=== PATIENT | male | born 1980 | race Caucasian/White ===

== ENCOUNTER 2018-02-08 20:51 | Emergency (ER) | payer MEDICAID, SELFPAY ==
[2018-02-08 20:51] VITALS: BP 139/75; PULSE 86; RESP 16; TEMP 37; O2SAT 97; BMI 26.9
--- NOTE | 2018-02-08 21:05 | ED.VISSUMM ---
- ER Visit Summary Date of Service: 02/08/18 Chief Complaint: Dog bite History of Present Illness: The patient is a 37 M [id number] dog bite right middle and index finger. 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 Tetanus February 2017. No paresthesias or loss of function. Denies any significant pain. Unable to control bleeding. Physical Examination: General: Alert and oriented ?3, no acute distress HEENT: Normocephalic, atraumatic. Moist mucosa membranes Neck: supple, nontender. Cardiovascular: Regular rate and rhythm, no murmurs Respiratory: Normal breath sounds, symmetric, no distress Abdomen: Soft, nontender, nondistended Extremities: Nontender, no edema, pulses intact ?4. Right hand: Middle finger, abrasion across the dorsal aspect middle phalanx no active bleeding. Middle finger noted 2 cm laceration across the ulnar aspect proximal middle phalanx, flexion and extension intact against resistance. Minimal bleeding. Sensation intact distally. Neuro: no focal neurological deficits. Test Results: [] Emergency Department Course and Treatment: Due to dog bite with laceration, is soaked in Betadine water mixture prolonged period of time. Evaluation during laceration repair, subcutaneous involvement. However due to mild bleeding, 3 loose sutures were placed. Wound care discussed. He was started on Augmentin. Signs and symptoms for infection discussed to return otherwise follow-up with his PCP for suture removal. All questions were answered. Treatment Plan: [] Disposition: Discharge Impression: 1. Right middle finger laceration 2. Dog bite right index and middle finger This note was generated with Domee dictation software. It may contain incorrect words, spelling, and punctuation that were not noted in review of the chart prior to signing ED Disposition - Plan for ED Patient: Disposition: Home or Assisted Living Chief Complaint: Bite Diagnosis: Laceration of right middle finger, Dog bite of multiple sites of right hand and fingers Instructions: ED Bite Dog, ED Laceration All Prescriptions: Amox/Clavulanate Tablet [Augmentin Tablet] 875 mg PO Q12H #14 tablet Referrals: Care Physician,No Primary [Primary Care Provider] - Domenico Almaraz MD [STAFF PHYSICIAN] - 10-14 Days suture removal
[2018-02-08] MEDS: Amox/Clavulanate 875 MG Tablet PO (21:18)
[2018-02-08 22:28] VITALS: PULSE 67; RESP 20
[2018-02-08] MEDS: BACITRACIN 15 GM Tube 1 APPLIC TOPICAL (22:30)
== END 2018-02-08 22:30 | disposition home or self-care (01) ==
PROVIDERS: Emergency Provider Emergency Medicine
DX: S61.212A Laceration without foreign body of right middle finger without damage to nail, initial encounter (principal); S60.470A Other superficial bite of right index finger, initial encounter; W54.0XXA Bitten by dog, initial encounter; Y93.89 Activity, other specified; Y92.009 Unspecified place in unspecified non-institutional (private) residence as the place of occurrence of the external cause; Z72.0 Tobacco use
CPT/HCPCS: 12001; 99283

== ENCOUNTER → 2018-02-12 09:21 | Outpatient (CLI) | payer MEDICAID, SELFPAY ==
[2018-02-12 10:16] LABS: Absolute Lymphocyte Count 1.73 X10^3/ul (0.83-4.51); Absolute Neutrophil Count 4.1 X10^3/uL (2.0-7.7); Basophil# 0.02 X10^3/uL; Basophil% 0.3 % (0-1); Eosinophil# 0.14 X10^3/uL; Eosinophils% 2.2 % (0-5); Hematocrit 39.4 % (40-54); Hemoglobin 13.2 g/dl (13.0-16.5); Lymphocyte # 1.73 X10^3/ul (4.0); Lymphocyte % 26.7 % (19-41); Mean Corp Hgb Conc 33.5 g/gl (32-36); Mean Corpuscular Hgb 31.3 pg (27.0-32.0); Mean Corpuscular Volume 93.4 fL (80-94); Mean Platelet Vol. 10.1 fl (6.2-12.0); Monocyte# 0.52 X10^3/uL; Neutrophil # 4.07 X10^3/uL (2.7-7.7); Neutrophil % 62.8 % (47-70); POSITIVE COUNT NO; POSITIVE DIFFERENTIAL NO; POSITIVE MORPHOLOGY NO; Platelet Count 211 K/mm3 (150-450); RBC Distribution Width CV 13.5 % (11.6-14.6); RBC Distribution Width SD 46.1 fl (35.1-43.9); Red Blood Count 4.22 M/mm3 (4.6-6.2); White Blood Count 6.5 K/mm3 (4.4-11.0)
[2018-02-12 10:42] LABS: Anion Gap 10 (5-15); BUN 18 mg/dL (7-18); BUN/Creat Ratio 17.5 RATIO (10-20); Chloride 106 mmol/L (98-107); Cholesterol 154 mg/dL (200); Creatinine, Serum 1.03 mg/dL (0.70-1.30); EST Glomerular Filtration Rate 85 mL/min (>60); Est Glom Filt Rate - Afr Amer 103 mL/min (>60); Glucose 89 mg/dL (74-106); High Density Lipoprotein 76 mg/dL; Potassium 3.9 mmol/L (3.5-5.1); Sodium Level 141 mmol/L (136-145); Triglycerides 40 mg/dL; Very Low Density Lipoprotein 8 mg/dL (5-40)
[2018-02-12 12:38] LABS: HIV - WCH Non-Reactive (Nonreactive)
[2018-02-14 09:49] LABS: HEPATITIS B SURFACE AG Negative (Negative); Hep C Antibodies <0.1 s/co ratio (0.0-0.9)
== END ==
PROVIDERS: Family Provider Family Medicine; PCP Family Medicine; Visit Provider Family Medicine
DX: I10 Essential (primary) hypertension (principal); Z87.898 Personal history of other specified conditions
CPT/HCPCS: 36415; 80048; 80061; 85025; 86703; 86803; 87340

== ENCOUNTER 2018-05-06 06:51 | Emergency (ER) | payer MEDICAID, SELFPAY ==
[2018-05-06 06:52] VITALS: BP 176/114; PULSE 107; RESP 16; TEMP 36.7; O2SAT 97; BMI 25.1
--- NOTE | 2018-05-06 06:55 | NURSING ---
NO OLD EKGS
--- NOTE | 2018-05-06 07:08 | ED.RN ---
Attempted to obtain EKG of patient. Patient will not sit still long enough to obtain ekg. Patient jumped up and growled at nursing staff and stated I feel better I am leaving. Patient ripped off all Monitors and left the unit at this time. Patient keeps walking in and out of the ER looking for family. Dr. Eagle attempted to examine patient. Patient unwilling to let Dr. Eagle examine the patient. Patient again walking around the unit refusing to allow medical treatment. Pt advised he needs to remain in the unit or leave. Patient at this time states he is fine and walked out. Patient wondering around the triage unit. rambling thoughts and unwilling to listen to staff. Patient family arrived and picked patient up and they left
--- NOTE | 2018-05-06 07:09 | EKG12_ITS ---
Test Reason : CP Blood Pressure : / mmHG Vent. Rate : 105 BPM Atrial Rate : 105 BPM P-R Int : 140 ms QRS Dur : 102 ms QT Int : 332 ms P-R-T Axes : 000 190 131 degrees QTc Int : 438 ms Sinus tachycardia Right superior axis deviation Nonspecific ST and T wave abnormality Abnormal ECG Confirmed by AYLA BRAN, PERLA ([id number]), supervising editor trailer ADELE RO ([id number]) on 05/07/2018 11:22:50 AM Referred By: SULMA Confirmed By:PERLA AGUILA MD
--- NOTE | 2018-05-06 07:10 | ED.VISSUMM ---
- ER Visit Summary Date of Service: 05/06/18 Chief Complaint: Chest pain History of Present Illness: The patient is a 37 M patient presents reported by his neighbor with chief complaint noted chest pain. Per nurse report states while doing light physical activity. During my evaluation patient denies any symptoms. Denies any current chest pain. He states he is brought by his neighbor. He admits to history of THC use with last use today. During evaluation, patient states he just needs to go. He denies any suicidal or homicidal ideations. He reports I took care of the last time he was here. Records notes history of tobacco occasional alcohol. Denies nausea vomiting or diarrhea. Denies any recent illness. Records reviewed: Evaluated 3 months ago for dog bite of his extremities. Family later present, states history of substance abuse. States that he is multiple drugs in the past he is on Suboxone. Patient denies any alcohol the last 2 days. Family states heavy drinker. Physical Examination: Initial evaluation, patient unable to sit still the room. Denies suicidal homicidal ideations. Declines any further exam at this time. Secondary physical examination on return with family: General: Alert and oriented ?3, no acute distress HEENT: Normocephalic, atraumatic. Moist mucosa membranes Neck: supple, nontender. Cardiovascular: Regular rate 96 and rhythm, no murmurs Respiratory: Normal breath sounds, symmetric, no distress Abdomen: Soft, nontender, nondistended Extremities: Nontender, no edema, pulses intact ?4 Neuro: no focal neurological deficits. Test Results: EKG: Sinus rhythm [address] changes or T wave inversions in 1 and aVL. Troponin less than 0.015. CBC, BMP normal. Tox screen positive for THC. Emergency Department Course and Treatment: Patient denying any symptoms in the emergency department. Denies suicidal homicidal ideations. Patient initially left the department, return with family and willing to be evaluated. Heart rate evaluation was in normal range during the physical exam. With his initial complaint of chest pain cardiac workup sent normal. Tox screen returned THC. Multiple discussion with family, history of multiple polysubstance abuse. Discuss with synthetic productions, tox screen does not screen for all drugs. Patient up walking, protecting his airway. He has no suicidal intentions. Family feels comfortable taking him home and monitoring. Discussed with them time should help with situation. If he redevelops chest symptoms to bring him back. They understand and agree with plan. Treatment Plan: [] Disposition: Discharge Impression: 1. Atypical chest pain 2. THC use This note was generated with [employer]wheel dictation software. It may contain incorrect words, spelling, and punctuation that were not noted in review of the chart prior to signing ED Disposition - Plan for ED Patient: Disposition: Home or Assisted Living Chief Complaint: Chest Pain Diagnosis: Atypical chest pain, Tetrahydrocannabinol (THC) use disorder, moderate, dependence Instructions: ED Chest Pain UKO Ch, Cannabinoid Screen and Confirmation Urine Referrals: Domenico Almaraz MD [Primary Care Provider] - 3-5 Days
--- NOTE | 2018-05-06 07:14 | ED.DCSUM_ITS ---
- ER Visit Summary Date of Service: 05/06/18 Chief Complaint: Chest pain History of Present Illness: The patient is a 37 M patient presents reported by his neighbor with chief complaint noted chest pain. Per nurse report states while doing light physical activity. During my evaluation patient denies any s ymptoms. Denies any current chest pain. He states he is brought by his neighbor. He admits to history of THC use with last use today. During evaluation, patient states he just needs to go. He denies any suicidal or homicidal ideations. He reports I took care of the last time he was here. Records notes history of tobacco occasional alcohol. Denies nausea vomiting or diarrhea. Denies any recent illness. Records reviewed: Evaluated 3 months ago for dog bite of his extremities. Family later present, states history of substance abuse. States that he is multiple drugs in the past he is on Suboxone. Patient denies any alcohol the last 2 days. Family states heavy drinker. Physical Examination: Initial evaluation, patient unable to sit still the room. Denies suicidal homicidal ideations. Declines any further exam at this time. Secondary physical examination on return with family: General: Alert and oriented ?3, no acute distress HEENT: Normocephalic, atraumatic. Moist mucosa membranes Neck: supple, nontender. Cardiovascular: Regular rate 96 and rhythm, no murmurs Respiratory: Normal breath sounds, symmetric, no distress Abdomen: Soft, nontender, nondistended Extremities: Nontender, no edema, pulses intact ?4 Neuro: no focal neurological deficits. Test Results: EKG: Sinus rhythm [address] changes or T wave inversions in 1 and aVL. Troponin less than 0.015. CBC, BMP normal. Tox screen positive for THC. Emergency Department Course and Treatment: Patient denying any symptoms in the emergency department. Denies suicidal homicidal ideations. Patient initially left the department, return with family and willing to be evaluated. Heart rate evaluation was in normal range during the physical exam. With his initial complaint of chest pain cardiac workup sent normal. Tox screen returned THC. Multiple discussion with family, history of multiple polysubstance abuse. Discu ss with synthetic productions, tox screen does not screen for all drugs. Patient up walking, protecting his airway. He has no suicidal intentions. Family feels comfortable taking him home and monitoring. Discussed with them time should help with situation. If he redevelops chest symptoms to bring him back. They understand and agree with plan. Treatment Plan: [] Disposition: Discharge Impression: 1. Atypical chest pain 2. THC use This note was generated with [employer] dictation software. It may contain incorrect words, spelling, and punctuation that were not noted in review of the chart prior to signing ED Disposition - Plan for ED Patient: Disposition: Home or Assisted Living Chief Complaint: Chest Pain Diagnosis: Atypical chest pain, Tetrahydrocannabinol (THC) use disorder, moderate, dependence Instructions: ED Chest Pain UKO Ch, Cannabinoid Screen and Confirmation Urine Referrals: Domenico Almaraz MD [Primary Care Provider] - 3-5 Days
--- NOTE | 2018-05-06 07:26 | ED.RN ---
Pt never left hospital grounds. Returned to ED agreeing to be evaluated.
--- NOTE | 2018-05-06 07:47 | ED.RN ---
PT CONTINUES TO PACE OUT OF THE ROOM AND WANT TO LEAVE. PT FAMILY GETS HIM TO RETURN TO ROOM. URINE AND BLOODWORK SENT TO LAB.
[2018-05-06 07:54] LABS: Absolute Lymphocyte Count 1.88 X10^3/ul (0.83-4.51); Basophil# 0.02 X10^3/uL; Basophil% 0.2 % (0-1); Eosinophil# 0.19 X10^3/uL; Eosinophils% 2.1 % (0-5); Hematocrit 40.6 % (40-54); Hemoglobin 13.5 g/dl (13.0-16.5); Lymphocyte # 1.88 X10^3/ul (4.0); Lymphocyte % 21.2 % (19-41); Mean Corp Hgb Conc 33.3 g/gl (32-36); Mean Corpuscular Volume 93.3 fL (80-94); Mean Platelet Vol. 10.3 fl (6.2-12.0); Monocyte# 0.82 X10^3/uL; Monocyte% 9.2 % (0-10); Neutrophil # 5.95 X10^3/uL (2.7-7.7); Neutrophil % 67.2 % (47-70); Platelet Count 167 K/mm3 (150-450); RBC Distribution Width CV 13.1 % (11.6-14.6); RBC Distribution Width SD 44.6 fl (35.1-43.9); Red Blood Count 4.35 M/mm3 (4.6-6.2); White Blood Count 8.9 K/mm3 (4.4-11.0)
[2018-05-06 07:58] LABS: POSITIVE COUNT NO; POSITIVE DIFFERENTIAL NO; POSITIVE MORPHOLOGY NO
--- NOTE | 2018-05-06 07:59 | ED.RN ---
PT CONTINUES TO PACE BACK AND FORTH IN THE ED [facility] FROM ROOM 4 DOWN TO THE DOORS BY SECURITY. PT HAS JEANS AND SHOES ON BUT IS CARRYING HIS SHIRT IN HIS HAND. PT STATES THAT HE IS UNABLE TO SIT STILL THAT HE HAS THINGS TO DO.
[2018-05-06 08:07] LABS: Amphetamine Urine VISTA NEGATIVE (<1000 ng/mL); Barbiturate Urine VISTA NEGATIVE (< 200 ng/mL); Benzodiazepine Urine VISTA NEGATIVE (< 200 ng/mL); Cocaine Urine VISTA NEGATIVE (< 300 ng/mL); Ecstacy Urine VISTA NEGATIVE (< 500 ng/mL); Methadone Urine VISTA NEGATIVE (< 300 ng/mL); PCP Urine VISTA NEGATIVE (< 25 ng/mL); THC Urine VISTA POSITIVE (< 50 ng/mL); Vista UDS pH Range 6
[2018-05-06 08:07] LABS: Anion Gap 11 (5-15); BUN 21 mg/dL (7-18); BUN/Creat Ratio 19.3 RATIO (10-20); Calcium,Total 8.6 mg/dL (8.5-10.1); Chloride 106 mmol/L (98-107); Creatinine, Serum 1.09 mg/dL (0.70-1.30); EST Glomerular Filtration Rate 80 mL/min (>60); Est Glom Filt Rate - Afr Amer 97 mL/min (>60); Estimated Creatinine Clearance 108.75 ml/min; Glucose 108 mg/dL (74-106); Potassium 3.7 mmol/L (3.5-5.1); Sodium Level 140 mmol/L (136-145)
[2018-05-06 08:27] VITALS: BP 147/97; PULSE 81; RESP 16; O2SAT 96
== END 2018-05-06 08:28 | disposition home or self-care (01) ==
PROVIDERS: Emergency Provider Emergency Medicine; Family Provider Family Medicine; PCP Family Medicine
DX: R07.89 Other chest pain (principal); F12.90 Cannabis use, unspecified, uncomplicated
CPT/HCPCS: 36415; 80048; 80307; 84484; 85025; 93005; 99283

== ENCOUNTER 2018-10-08 13:04 | Emergency (ER) | payer MEDICAID, SELFPAY ==
[2018-10-08 13:07] VITALS: BP 112/85; PULSE 102; RESP 16; TEMP 36.6; O2SAT 97; BMI 25.3
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
--- NOTE | 2018-10-08 15:24 | ED.DEP ---
ED Disposition - Plan for ED Patient: Instructions: ED Contusion Chest Wall Prescriptions: Cyclobenzaprine [Flexeril] 10 mg PO TID PRN #20 tab PRN Reason: Muscle Spasm Referrals: Domenico Almaraz MD [Primary Care Provider] -
== END 2018-10-08 15:48 | disposition home or self-care (01) ==
PROVIDERS: Emergency Provider Emergency Medicine; Family Provider Family Medicine; PCP Family Medicine
DX: R07.89 Other chest pain (principal)
CPT/HCPCS: 71101; 99282

== ENCOUNTER 2019-04-21 13:46 | Emergency (ER) | payer MEDICAID, SELFPAY ==
[2019-01-10 11:26] VITALS: BMI 23.1
[2019-04-21 13:47] VITALS: BP 133/78; PULSE 83; RESP 16; TEMP 36.6; O2SAT 99; BMI 26.9
[2019-04-21] MEDS: HYDROcodone Bitartrate/Apap 5/325 Tablet PO (14:45)
--- NOTE | 2019-04-21 14:50 | ED.VIS.GEN ---
History of Present Illness Chief Complaint: Abscess Informant: Patient Onset: Days - 3 Narrative: Patient presents with left face swelling and infection. This is been ongoing for a few days was seen at an urgent care yesterday and given amoxicillin. No fever chills cough or congestion no difficulty swallowing no dental pain. Past Medical History - Allergies and Home Meds Allergies/Adverse Reactions: Allergies No Known Allergies Allergy (Verified 04/21/19 13:47) Primary Care Physician: Care Physician,No Primary [Primary Care Provider] - Past Medical History: - - History of opiate dependence Smoking Status: Current every day smoker Review of Systems General: Denies: Fever ENT: Reports: - - Facial pain is in HPI Cardiovascular: Denies: Chest pain Respiratory: Denies: Dyspnea, Cough Skin: Reports: Abscess Neurological: Denies: Weakness Physical Exam Vital Signs/Narrative: Vital Signs Temp Pulse Resp BP Pulse Ox 04/21/19 13:47 98 F 83 16 133/78 H 99 General: Well nourished ENT: - - Left sided facial pain, there is a 6 cm abscess and another small abscess near the earlobe. There is slight surrounding cellulitis Cardiovascular: Regular rate, Regular rhythm Respiratory: No distress Abdomen: Soft Back: Nontender Extremities: Nontender Skin: No rash Diagnostic/Tx/Re-eval - Medical Decision Making Patient will be switched from amoxicillin to clindamycin, his abscess was drained I will discharge him in stable condition he is on Suboxone at home. Procedures Procedure(s): Incision and drainage: 1% lidocaine, James, #11 blade. Lots of pus was expectorated loculations were broken up. Patient tolerated procedure relatively well ED Disposition - Plan for ED Patient: Disposition: Psychiatric Hospital or Unit Diagnosis: Patient in stable condition at discharge, Abscess Instructions: ABSCESS, Incision and Drainage Referrals: Care Physician,No Primary [Primary Care Provider] - 2 Days
[2019-04-21 15:19] VITALS: BP 147/72; PULSE 78; RESP 18
--- NOTE | 2019-04-21 15:24 | ED.DEP ---
ED Disposition - Plan for ED Patient: Disposition: Psychiatric Hospital or Unit Diagnosis: Patient in stable condition at discharge, Abscess Instructions: ABSCESS, Incision and Drainage Prescriptions: Clindamycin [Cleocin] 300 mg PO TID #60 cap Prescription Printed Referrals: Care Physician,No Primary [Primary Care Provider] - 2 Days
== END 2019-04-21 15:29 | disposition home or self-care (01) ==
PROVIDERS: Emergency Provider Emergency Medicine
DX: L02.01 Cutaneous abscess of face (principal); F17.200 Nicotine dependence, unspecified, uncomplicated; F11.21 Opioid dependence, in remission
CPT/HCPCS: 10060; 99283

== ENCOUNTER → 2019-05-28 11:00 | Outpatient (CLI) | payer OTHER, SELFPAY ==
[2019-05-28 10:44] VITALS: BMI 25.5
--- NOTE | 2019-05-28 11:00 | RAD_ITS ---
STUDY: X-RAY - LEFT HAND REASON FOR EXAM: Pain and numbness of the first through fifth distal phalanges, open wound of the first distal digit, possible frostbite of the thumb. TECHNIQUE: 3 view(s) of the hand. COMPARISON: None. FINDINGS: Normal radiocarpal articulation. Normal distal radioulnar joint. Normal visualized carpal bones. Normal carpal articulations Normal carpometacarpal articulation of the thumb. Normal second through fifth carpometacarpal joints. Normal metacarpi. Normal metacarpophalangeal joint of the thumb. Normal interphalangeal joint of the thumb. Normal proximal and distal phalanges of the thumb. Normal metacarpophalangeal joints of the second through fifth fingers. Normal proximal and distal interphalangeal joints of the second through fifth fingers. There is a very small cyst in the third middle phalangeal base. Otherwise, unremarkable phalanges of the second through fifth fingers. There is soft tissue swelling of the distal thumb. RAD/Hand Min 3 Views IMPRESSION: Soft tissue swelling of the distal thumb. Very small cyst in the third middle phalangeal base. Otherwise, unremarkable x-ray examination of the left hand. Electronically Signed: Alin Brown MD at 11:53 EST Tel , Service support ,
== END ==
PROVIDERS: Referring Provider Physician Assistant; Visit Provider Physician Assistant
DX: T33.522A Superficial frostbite of left hand, initial encounter (principal); X31.XXXA Exposure to excessive natural cold, initial encounter; L03.012 Cellulitis of left finger
CPT/HCPCS: 73130; 87070; 87186; 87205

== ENCOUNTER 2019-06-01 16:13 | Emergency (ER) | payer OTHER, MEDICAID, SELFPAY ==
[2019-06-01 12:27] VITALS: BMI 26.9
[2019-06-01 16:14] VITALS: BP 130/76; PULSE 96; RESP 16; TEMP 36.9; O2SAT 96; BMI 25.7
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
== END 2019-06-01 17:11 | disposition home or self-care (01) ==
PROVIDERS: Emergency Provider Emergency Medicine
DX: S60.322A Blister (nonthermal) of left thumb, initial encounter (principal); B95.62 Methicillin resistant Staphylococcus aureus infection as the cause of diseases classified elsewhere; W93.2XXA Prolonged exposure in deep freeze unit or refrigerator, initial encounter; Y93.89 Activity, other specified; Y92.9 Unspecified place or not applicable; Y99.0 Civilian activity done for income or pay; Z86.14 Personal history of Methicillin resistant Staphylococcus aureus infection; F17.200 Nicotine dependence, unspecified, uncomplicated
CPT/HCPCS: 99283

== ENCOUNTER 2019-06-12 10:05 | Outpatient (RCR) | payer OTHER, SELFPAY ==
[2019-06-12 10:12] VITALS: BP 123/80; PULSE 86; RESP 18; TEMP 36.9; BMI 25.7
--- NOTE | 2019-06-12 11:00 | PCM.WC.HP ---
(1) Frostbite of finger of left hand Status: Acute Current Visit: Yes Code(s): T33.522A - Superficial frostbite of left hand, initial encounter (2) Cellulitis of left thumb Status: Acute Current Visit: Yes Code(s): L03.012 - Cellulitis of left finger (3) Frostbite of finger of right hand Status: Acute Current Visit: Yes Code(s): T33.521A - Superficial frostbite of right hand, initial encounter History of Present Illness Date of Service: 06/12/19 Chief Complaint: frostbite of left thumb, left thumb swelling and pain History of Wound: [facility] evaluation of his left thumb status post work-related injury. He was referred from the [facility] urgent care. He was initially seen at the [facility] on 05/28/2019 for this work-related injury. Per patient and chart notes, he developed frostbite in all digits of bilateral hands while at work about 1 week prior to being seen at the [facility] (~05/21/2019). 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 Upon initial development of frostbite, patient was experiencing swelling, pain, and hypopigmentation of all digits. However on 05/26/2019 he began experiencing increasing pain, swelling, and redness, as well as purulent discharge from his left thumb. His left hand x-ray done on 05/28/2019 showed soft tissue swelling of the left distal thumb, but otherwise unremarkable in regards to frostbite and cellulitis. The culture that was collected at the [facility] on 05/28/2019 was positive for MRSA. Patient was treated with 2 weeks of doxycycline. When he was subsequently seen at the urgent care on 06/01/2019, he did not feel his thumb was improving and he was overall feeling poorly. He had used pliers to squeeze his thumb in an attempt to express more drainage from thumb. At that time he was sent to the emergency room, where he was evaluated and discharged home without any changes to plan of care. At today's visit 06/12/2019, he denies any new or worsening symptoms. He reports that the pain in his left thumb is persistent. He reports that the swelling and pallor in his thumb is mildly improved. He does report some upset stomach, which he relates to his antibiotics. He reports that the purulent drainage from his thumb has resolved since finishing the antibiotics. The patient otherwise denies any fever, chills, nausea, vomiting, or diarrhea. Denies any signs of infection, including increasing pain, redness, swelling, or drainage from affected area. He has limited range of motion of his left thumb due to the swelling and pain. Given his work duties, which include lifting and working in -20 ?F temperatures, he reports he has been unable to return to work. Past Medical History Allergies/Adverse Reactions: Allergies No Known Allergies Allergy (Verified 06/01/19 16:14) Home Medications: Ambulatory Orders Medication Instructions Recorded Buprenorphine HCl/Naloxone HCl 0.5 ea SL QHS 04/21/19 [Buprenorphn-Naloxn 2-0.5 mg Sl] Buprenorphine HCl/Naloxone HCl 1 ea SL DAILY 04/21/19 [Buprenorphn-Naloxn 2-0.5 mg Sl] Smoking Status: Current every day smoker Review of Systems Constitutional: Denies: Chills, Fever, Weight Change Cardiovascular: Denies: Chest Pain, Palpitations Respiratory: Denies: Cough, Shortness of Breath, Wheezing Gastrointestinal: Denies: Diarrhea, Nausea, Vomiting Musculoskeletal: Reports: Hand Pain - B/L digits distally; L thumb, Joint Pain - Left thumb, Joint stiffness - Left thumb IP joint Skin: Reports: Skin Changes - Decrease in erythema and swelling of left thumb, resolution of pallor in all distal phalanges.. Denies: Rash Neurological: Reports: Numbness - Decreased sensation in all fingertips of bilateral hands.. Denies: Tingling - Physical Exam Vital Signs Temp Pulse Resp BP 98.5 F 86 18 123/80 H 06/12/19 10:12 06/12/19 10:12 06/12/19 10:12 06/12/19 10:12 General: Alert, Oriented x3, Cooperative, No apparent distress HEENT: Atraumatic, EOMI, Normocephalic Oral: Moist Mucosa Neck: Supple, No JVD, Trachea Midline Lungs: Clear to auscultation, Normal air movement, No rhonchi, No wheeze, No rales Cardiovascular: Regular rate, Regular Rhythm Abdomen: Bowel Sounds Present, Soft, Non Tender Extremities: No clubbing, No cyanosis, Capillary Refill Less than 3 Seconds, Edema - Swelling of left thumb in its entirety, from base to fingertip., Peripheral Pulses Normal Skin: No rashes, Ulcer/ Wound - Mild erythema of distal left thumb, scant amount of clear, nonpurulent drainage expressed from thumb, the wound opening is not directly visible. Fluctuance palpable beneath left thumb volar pad. Mild ecchymosis of left thumb distally. Swelling of left thumb in entirety from base to tip. Severe tenderness of L thumb on palpation and manipulation. Wound Measurements and Assessment - Nurse 1 - General Ulcer Measurement Start: 06/12/19 10:12 Freq: Status: Active Protocol: Activity Type Activity Date Activity User E-Sign Co-Sign Detail Recorded Client Recorded Date Recorded By Document 06/12/19 10:12 [id number] [id number] 06/12/19 10:19 06/12/19 10:12 Wound Center Nurse 1 [Edema Assessment] -Lower Limb Edema Present NA - Nurse 2 - General Ulcer CM Notes Start: 06/12/19 10:12 Freq: Status: Active Protocol: Activity Type Activity Date Activity User E-Sign Co-Sign Detail Recorded Client Recorded Date Recorded By Document 06/12/19 10:36 [id number] [id number] 06/12/19 10:48 06/12/19 10:36 Wound Center Nurse 2 [Procedure/Treatment] 1-left thumb -Time 10:37 -Correct Patient Yes -Correct Side, Site, Position Yes -Correct Procedure Yes -Procedure Performed Yes -Type of Procedure Debridement -Clinical Debridement Selective -Post Debridement Size (cm) - Length 0.1 -Post Debridement Size (cm) - Width 0.1 -Post Debridement Size (cm) - Depth 0.1 -Total Square Cm 0.01 -Wound/Ulcer Outcome Not Healed -Ulcer Cleansing Rinsed/ Irrigated with Saline -Foul Odor after Cleansing No -Bioengineered Tissue No -Bleeding Controlled with Pressure -Offloading No -Treatment Response Procedure Tolerated Well [See Physician Procedure note for Specifics] Pain Scale: 0-10 Numeric [Pain] -Is Patient Pain Free? No Musculoskeletal: Tenderness - Severe tenderness of left thumb on palpation of manipulation. Neurological: Neuro grossly intact - Per patient, sensation to light touch is impaired in all 10 fingertips. Psych/Mental Status: Anxious Debridement Note Post-Debridement Measurements/Treatment - Nurse 2 - General Ulcer CM Notes Start: 06/12/19 10:12 Freq: Status: Active Protocol: Activity Type Activity Date Activity User E-Sign Co-Sign Detail Recorded Client Recorded Date Recorded By Document 06/12/19 10:36 [email or web address] [id number] 06/12/19 10:48 FIFI 06/12/19 10:36 Wound Center Nurse 2 1-left thumb -Time 10:37 -Correct Patient Yes -Correct Side, Site, Position Yes -Correct Procedure Yes -Procedure Performed Yes -Type of Procedure Debridement -Clinical Debridement Selective -Post Debridement Size (cm) - Length 0.1 -Post Debridement Size (cm) - Width 0.1 -Post Debridement Size (cm) - Depth 0.1 -Total Square Cm 0.01 -Wound/Ulcer Outcome Not Healed -Ulcer Cleansing Rinsed/ Irrigated with Saline -Foul Odor after Cleansing No -Bioengineered Tissue No -Bleeding Controlled with Pressure -Offloading No -Treatment Response Procedure Tolerated Well Pain Scale: 0-10 Numeric Is Patient Pain Free? No Assessment/Plan Active Problems (Last Reviewed 06/01/19 @ 12:27 by Harini Wills) Cellulitis of left thumb (Acute) Frostbite of finger of right hand (Acute) Frostbite of finger of left hand (Acute) Assessment: See above dx Plan: Previous records reviewed. I&D performed to L thumb volar pad. Attempted to use 2% lidocaine injection to numb thumb. Patient did not tolerate, jerking away from needle after insertion, and asked to proceed with I&D without lidocaine d/t pain with injection. Small, approximately 1 cm incision made to left thumb volar pad using #15 blade. Small amount of clear, nonpurulent drainage expressed. Patient did not tolerate procedure well and procedure was stopped prematurely due to risk of injury to patient and provider, given patient's intolerance to pain and inability to remain still during procedure. Incision was not large/wide enough to pack with dressing. Wound was cleansed following I&D, and sterile gauze dressing placed. At home wound-care instructions: Soak wound in warm salt water several times daily. Take caution to ensure that water is not too hot, as this may cause further injury. Use Hibiclens to left thumb several times daily and as needed to keep skin clean and dry, and free from infection. Cover left thumb with sterile gauze and keep covered. Diet: Increase protein intake to promote wound healing. Labs/cultures/imaging: Left hand x-ray and thumb culture results reviewed. Repeat x-ray of left hand with attention to left thumb ordered today due to unresolved swelling and pain of left thumb. Follow-up: Return to clinic in 1 week for re-evaluation. [facility] [place] paperwork completed. Patient is to remain off work until [facility]. He is to avoid handling hot or cold items and to avoid cold environments. If at anytime symptoms worsen, or new symptoms develop, please report to the emergency department for evaluation. Note: [employer] speech recognition mechanical engineering lecturer software was used to create portions of this document. Sound-alike and misspelled words, as well as other mechanical engineering lecturer errors may be contained in the documentation. Code Visit Office Visits / Consults: [id number] OV L4 Est 10xxx: [id number] Drainage of skin abscess
== END 2019-06-16 23:59 ==
LOC: WC 10:05
PROVIDERS: Visit Provider Nurse Practitioner Family
DX: T33.522A Superficial frostbite of left hand, initial encounter (principal); T33.521A Superficial frostbite of right hand, initial encounter; L03.012 Cellulitis of left finger; Y99.0 Civilian activity done for income or pay; W93.8XXA Exposure to other excessive cold of man-made origin, initial encounter; Y93.89 Activity, other specified; Y92.89 Other specified places as the place of occurrence of the external cause; F17.200 Nicotine dependence, unspecified, uncomplicated
CPT/HCPCS: 10060; 99213; G0463

== ENCOUNTER → 2019-06-12 11:18 | Outpatient (CLI) | payer MEDICAID, SELFPAY ==
[2019-06-12 10:12] VITALS: BMI 25.7
--- NOTE | 2019-06-12 11:21 | RAD_ITS ---
STUDY: X-RAY - LEFT HAND REASON FOR EXAM: Male, 38 years old. PREVIOUS FROSTBITE. NOT GETTING BETTER TECHNIQUE: 3 view(s) of the hand. COMPARISON: None. FINDINGS: Normal radiocarpal articulation. Normal distal radioulnar joint. Normal visualized carpal bones. Normal carpal articulations Normal carpometacarpal articulation of the thumb. Normal second through fifth carpometacarpal joints. Normal metacarpi. Normal metacarpophalangeal joint of the thumb. Normal interphalangeal joint of the thumb. Normal proximal phalanx of the thumb. There is subtle lucency involving the base of the distal phalanx which may indicate sequela of a nondisplaced fracture. Abnormal lucency at the tip of the distal phalanx which may indicate a subtle crush fracture. Normal metacarpophalangeal joints of the second through fifth fingers. Normal proximal and distal interphalangeal joints of the second through fifth fingers. Normal phalanges of the second through fifth fingers. The soft tissue structures are unremarkable. RAD/Hand Min 3 Views IMPRESSION: Possible fracture through the base and distal aspect of the distal phalanx of the thumb. Remainder of the exam unremarkable. Electronically Signed: Teresa Arevalo MD at 1:11 EST , Service support ,
== END ==
PROVIDERS: Referring Provider Nurse Practitioner Family; Visit Provider Nurse Practitioner Family
DX: T33.522A Superficial frostbite of left hand, initial encounter (principal); L03.012 Cellulitis of left finger
CPT/HCPCS: 73130

== ENCOUNTER 2019-06-26 10:00 | Outpatient (RCR) | payer MEDICAID, SELFPAY ==
[2019-06-17 01:10] VITALS: BP 123/80; PULSE 86; RESP 18; TEMP 36.9
--- NOTE | 2019-06-18 17:10 | PCM.WC.PN ---
(1) Cellulitis of left thumb Status: Acute Current Visit: Yes Code(s): L03.012 - Cellulitis of left finger (2) Frostbite of finger of left hand Status: Acute Current Visit: Yes Code(s): T33.522A - Superficial frostbite of left hand, initial encounter (3) Frostbite of finger of right hand Status: Acute Current Visit: Yes Code(s): T33.521A - Superficial frostbite of right hand, initial encounter Type of Wound Date of Service: 06/18/19 Chief Complaint: frostbite of left thumb, left thumb swelling and pain History of Wound: [facility] for evaluation of his left thumb status post work-related injury. He was referred from the [facility] urgent care. He was initially seen at the [facility] on 05/28/2019 for this work-related injury. Per patient and chart notes, he developed frostbite in all digits of bilateral hands while at work about 1 week prior to being seen at the [facility] (~05/21/2019). 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 Upon initial development of frostbite, patient was experiencing swelling, pain, and hypopigmentation of all digits. However on 05/26/2019 he began experiencing increasing pain, swelling, and redness, as well as purulent discharge from his left thumb. His left hand x-ray done on 05/28/2019 showed soft tissue swelling of the left distal thumb, but otherwise unremarkable in regards to frostbite and cellulitis. The culture that was collected at the [facility] on 05/28/2019 was positive for MRSA. Patient was treated with 2 weeks of doxycycline. When he was subsequently seen at the urgent care on 06/01/2019, he did not feel his thumb was improving and he was overall feeling poorly. He had used pliers to squeeze his thumb in an attempt to express more drainage from thumb. At that time he was sent to the emergency room, where he was evaluated and discharged home without any changes to plan of care. At today's visit 06/12/2019, he denies any new or worsening symptoms. He reports that the pain in his left thumb is persistent. He reports that the swelling and pallor in his thumb is mildly improved. He does report some upset stomach, which he relates to his antibiotics. He reports that the purulent drainage from his thumb has resolved since finishing the antibiotics. The patient otherwise denies any fever, chills, nausea, vomiting, or diarrhea. Denies any signs of infection, including increasing pain, redness, swelling, or drainage from affected area. He has limited range of motion of his left thumb due to the swelling and pain. Given his work duties, which include lifting and working in -20 ?F temperatures, he reports he has been unable to return to work. Progress of Wound: Patient reports significant improvement in swelling and pain of left thumb. He has been compliant with warm water soaks and cleansing of his left thumb. He still reports persistent paresthesias of fingertips of left hand, and left thumb is vacuum drier tender to palpation. Only a small wound opening is present today, with scant clear drainage. The patient otherwise denies any fever, chills, nausea, vomiting, or diarrhea. Denies any signs of infection, including increasing pain, redness, swelling, or purulent/foul-smelling drainage from affected area. - Physical Exam Vital Signs Temp Pulse Resp BP 98.5 F 86 18 123/80 H 06/17/19 01:10 06/17/19 01:10 06/17/19 01:10 06/17/19 01:10 General: Alert, Oriented x3, Cooperative, No apparent distress HEENT: Atraumatic, EOMI, Normocephalic Oral: Moist Mucosa Neck: Supple, Trachea Midline Cardiovascular: Regular rate Extremities: No clubbing, No cyanosis, Capillary Refill Less than 3 Seconds, Cool - Digits of left hand cool to touch in comparison to digits of right hand, Edema - Improving but persistent swelling of her left thumb, Peripheral Pulses Normal - of BUE, Tenderness - Tenderness to palpation/manipulation of left thumb Skin: Ulcer/ Wound - Small poorly-defined opening of left thumb volar pad s/p I&D last week, draining a very scant amount of clear drainage. No surrounding erythema, no warmth to touch. There is no longer a palpable fluctuance beneath the volar pad of left thumb. Musculoskeletal: Tenderness - To palpation/manipulation of left thumb Neurological: Neuro grossly intact Psych/Mental Status: Normal Affect, Appropriate Assessment/Plan Active Problems (Last Reviewed 06/01/19 @ 12:27 by Harini Wills) Cellulitis of left thumb (Acute) Frostbite of finger of right hand (Acute) Frostbite of finger of left hand (Acute) Assessment: See above dx Plan: No debridement performed today in clinic, due to poorly defined wound opening, and due to previous pain intolerance. Melgisorb dressing placed over wound of left thumb, and covered with gauze and secured with tape. Patient instructed on daily dressing changes with Melgisorb, and keeping dressing clean and dry, changing if it becomes contaminated. Patient may continue to use Hibiclens as needed to keep thumb clean and free from infection. Diet: Patient encouraged to increase protein to aid in wound healing. X-ray of left hand reviewed with patient and patient's mother. No concerning findings related to cellulitis/frostbite. Follow-up: Return to clinic in 1 week for re-evaluation. Return sooner or report to the emergency room should symptoms worsen, or new symptoms arise. Worker's Comp: Patient is released to work with restrictions as noted on zkip[employer] 14. Patient is not permitted to handle any hot or cold items, nor to work in any cold (refrigerated, freezer) environments. He is not to perform any repetitive motions involving his left thumb, such as grasping. He may perform occasional lifting, pushing, pulling of up to 10 pounds. Necessity of restrictions will be reassessed at next appointment next week. Note: [employer] speech recognition traffic rate clerk software was used to create portions of this document. Sound-alike and misspelled words, as well as other traffic rate clerk errors may be contained in the documentation. Code Visit Office Visits / Consults: [id number] OV L3 Est
[2019-06-26 10:23] VITALS: BP 148/64; PULSE 105; RESP 18; TEMP 36.4; BMI 25.7
--- NOTE | 2019-06-26 14:56 | PCM.WC.PN ---
(1) Cellulitis of left thumb Status: Acute Current Visit: Yes Code(s): L03.012 - Cellulitis of left finger (2) Frostbite of finger of left hand Status: Acute Current Visit: Yes Code(s): T33.522A - Superficial frostbite of left hand, initial encounter (3) Frostbite of finger of right hand Status: Acute Current Visit: Yes Code(s): T33.521A - Superficial frostbite of right hand, initial encounter Type of Wound Date of Service: 06/26/19 Chief Complaint: frostbite of left thumb, left thumb swelling and pain History of Wound: [facility] evaluation of his left thumb status post work-related injury. He was referred from the [facility] urgent [facility]. [facility] on 05/[facility]2019 for this work-related injury. Per patient and chart notes, he developed frostbite in all digits of bilateral hands while at work about 1 week prior to being seen at the [facility] (~05/21/2019). 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 Upon initial development of frostbite, patient was experiencing swelling, pain, and hypopigmentation of all digits. However on 05/26/2019 he began experiencing increasing pain, swelling, and redness, as well as purulent discharge from his left thumb. His left hand x-ray done on 05/28/2019 showed soft tissue swelling of the left distal thumb, but otherwise unremarkable in regards to frostbite and cellulitis. The culture that was collected at the [facility] on 05/28/2019 was positive for MRSA. Patient was treated with 2 weeks of doxycycline. When he was subsequently seen at the urgent care on 06/01/2019, he did not feel his thumb was improving and he was overall feeling poorly. He had used pliers to squeeze his thumb in an attempt to express more drainage from thumb. At that time he was sent to the emergency room, where he was evaluated and discharged home without any changes to plan of care. At today's visit 06/12/2019, he denies any new or worsening symptoms. He reports that the pain in his left thumb is persistent. He reports that the swelling and pallor in his thumb is mildly improved. He does report some upset stomach, which he relates to his antibiotics. He reports that the purulent drainage from his thumb has resolved since finishing the antibiotics. The patient otherwise denies any fever, chills, nausea, vomiting, or diarrhea. Denies any signs of infection, including increasing pain, redness, swelling, or drainage from affected area. He has limited range of motion of his left thumb due to the swelling and pain. Given his work duties, which include lifting and working in -20 ?F temperatures, he reports he has been unable to return to work. Progress of Wound: Improvement in swelling and pain of left thumb is stable. He has been compliant with wound care. There has been no drainage from his left thumb, and it appears to be scabbed over with stable eschar. He still reports mild persistent paresthesias of fingertips of left hand, and left thumb is still mildly tender to palpation, though greatly improved from initial evaluation 2 weeks ago. The patient denies any fever, chills, nausea, vomiting, or diarrhea. Denies any signs of infection, including increasing pain, redness, swelling, or purulent/foul-smelling drainage from affected area. The patient has not yet returned to work. - Physical Exam Vital Signs Temp Pulse Resp BP 97.5 F L 105 H 18 148/64 H 06/26/19 10:23 06/26/19 10:23 06/26/19 10:23 06/26/19 10:23 General: Alert, Oriented x3, Cooperative, No apparent distress HEENT: Atraumatic, EOMI, Normocephalic Oral: Moist Mucosa Neck: Supple, No JVD, Trachea Midline Cardiovascular: Regular rate Extremities: No clubbing, No cyanosis, Capillary Refill Less than 3 Seconds, Edema - Mild residual swelling of left thumb., Peripheral Pulses Normal, - - Patient reports persistent paresthesias of all fingertips. Discoloration, blanching, and coolness to touch of fingertips has resolved. Skin: Ulcer/ Wound - Left thumb volar pad without any open wound. There is stable eschar present, as well as callus. Left thumb volar pad is still mildly tender to palpation. No erythema, warmth, or drainage. Wound Measurements and Assessment WC - Nurse 1 - General Ulcer Measurement Start: 06/19/19 09:36 Freq: Status: Active Protocol: Activity Type Activity Date Activity User E-Sign Co-Sign Detail Recorded Client Recorded Date Recorded By Document 06/26/19 10:23 DL [id number] 06/26/19 10:26 DL 06/26/19 10:23 Wound Center Nurse 1 [Ulcer Assessment] 1-left thumb -Current Size (cm) - Length 0.7 -Current Size (cm) - Width 0.5 -Current Size (cm) - Depth 0.1 -Total Square Cm 0.35 -Photo Taken No -Exudate Amt None Present -Wound Margin Thickened -Granulation Amt None Present (0 %) -Necrosis Amt Small (1-33%) -Necrotic Tissue Type Eschar -Structure Exposed N/A -Texture (Tiny-wound Skin Appearance) Localized Edema ,Scarring -Moisture (Tiny-wound Skin Appearance No Abnormality ) -Color (Tiny-wound Skin Appearance) Erythema -Temperature (Tiny-wound Skin No Abnormality Appearance) (Pt Warm) -Tenderness on Palpation (Tiny-wound No Skin Appearance) -Ulcer Cleansing Rinsed/ Irrigated with Saline -Foul Odor after Cleansing No -Anesthetic Used 5% Lidocaine Gel Musculoskeletal: Tenderness Neurological: Neuro grossly intact Psych/Mental Status: Normal Affect, Appropriate Assessment/Plan Active Problems (Last Reviewed 06/01/19 @ 12:27 by Harini Wills) Cellulitis of left thumb (Acute) Frostbite of finger of right hand (Acute) Frostbite of finger of left hand (Acute) Assessment: See above dx Plan: No debridement performed today in clinic, due to lack of open wound. Stable eschar present on left thumb volar pad. Cleansed with Betadine today in clinic, and covered with gauze and secured with tape. Patient instructed on daily cleansing of eschar with Betadine solution. Patient is to keep thumb covered with clean gauze or bandaid at all times until eschar resolves. Avoid picking at or removing eschar from thumb. Diet: Patient encouraged to increase protein to aid in healing. Follow-up: [facility] 1 week for re-evaluation. Since all open wounds have resolved, patient is [facility]. Return to urgent care or report to the emergency room should symptoms worsen, or new symptoms arise. Worker's Comp: Patient is released to work with restrictions as noted on [employer]. Patient is not permitted to handle any hot or cold items, nor to work in any cold (refrigerated, freezer) environments. He is not to perform any repetitive motions involving his left thumb, such as grasping. He may perform occasional lifting, pushing, pulling of up to 10 pounds. Necessity of restrictions will be reassessed at [facility] appointment next week. Note: [employer] speech recognition paper and prints restorer software was used to create portions of this document. Sound-alike and misspelled words, as well as other paper and prints restorer errors may be contained in the documentation. Code Visit Office Visits / Consults: [id number] OV L3 Est
== END 2019-07-17 23:59 ==
LOC: WC 10:00
PROVIDERS: Visit Provider Nurse Practitioner Family
DX: T33.522A Superficial frostbite of left hand, initial encounter (principal); T33.521A Superficial frostbite of right hand, initial encounter; L03.012 Cellulitis of left finger; Y99.0 Civilian activity done for income or pay; W93.8XXA Exposure to other excessive cold of man-made origin, initial encounter; Y93.89 Activity, other specified; Y92.89 Other specified places as the place of occurrence of the external cause
CPT/HCPCS: 99212; G0463

== ENCOUNTER 2019-10-30 01:03 | Emergency (ER) | payer SELFPAY ==
[2019-10-30 01:05] VITALS: PULSE 140; RESP 18; TEMP 36.9; O2SAT 97; BMI 24.3
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
[2019-10-30 01:18] VITALS: BP 152/99; PULSE 124
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
--- NOTE | 2019-10-30 02:14 | ED.RN ---
pt walking around ED, repeatedly directed back to room by RN, MD, and security. Left to go outside and smoke and drink wine, then returned to room. Informed of plan of care. Pt then stated he thought it was disrespectful to make his ride wait and refused to stay for treatment. MD awaiting call from orthopedic surgeon.
== END 2019-10-30 02:19 | disposition left against medical advice (07) ==
PROVIDERS: Emergency Provider Emergency Medicine
DX: S62.323B Displaced fracture of shaft of third metacarpal bone, left hand, initial encounter for open fracture (principal); W29.4XXA Contact with nail gun, initial encounter; Y93.89 Activity, other specified; Y92.9 Unspecified place or not applicable; F17.200 Nicotine dependence, unspecified, uncomplicated; Z53.29 Procedure and treatment not carried out because of patient's decision for other reasons
CPT/HCPCS: 73130; 90715; 99283

== ENCOUNTER 2022-11-29 17:33 | Emergency (ER) | payer MEDICAID, SELFPAY ==
[2022-11-29 17:34] VITALS: BP 118/87; PULSE 93; RESP 14; TEMP 36.6; O2SAT 100; BMI 25.1
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
[2022-11-29 19:08] LABS: Amphetamine Urine VISTA POSITIVE (<1000 ng/mL); Barbiturate Urine VISTA NEGATIVE (< 200 ng/mL); Benzodiazepine Urine VISTA NEGATIVE (< 200 ng/mL); Cocaine Urine VISTA NEGATIVE (< 300 ng/mL); Ecstacy Urine VISTA NEGATIVE (< 500 ng/mL); Methadone Urine VISTA NEGATIVE (< 300 ng/mL); PCP Urine VISTA NEGATIVE (< 25 ng/mL); THC Urine VISTA POSITIVE (< 50 ng/mL); Vista UDS pH Range 5
== END 2022-11-29 19:28 | disposition home or self-care (01) ==
PROVIDERS: Emergency Provider Emergency Medicine; Visit Provider Emergency Medicine
DX: F12.90 Cannabis use, unspecified, uncomplicated (principal); F17.210 Nicotine dependence, cigarettes, uncomplicated
CPT/HCPCS: 80307; 99282

== ENCOUNTER → 2024-01-16 | Outpatient (CLI) | payer MEDICAID, SELFPAY ==
[2024-01-16 14:28] LABS: Hepatitis B Surface Antibody Reactive; Hepatitis B Surface Antigen Non-Reactive (Nonreactive)
[2024-01-16 14:32] LABS: Hepatitis C Antibody Reactive (Nonreactive)
[2024-01-17 07:09] LABS: Hepatitis B Core Ab Total Positive (Negative)
== END | disposition home or self-care (01) ==
PROVIDERS: Visit Provider Family Medicine
DX: B19.20 Unspecified viral hepatitis C without hepatic coma (principal)
CPT/HCPCS: 36415; 86704; 86706; 86803; 87340

== ENCOUNTER 2024-05-05 19:41 | Emergency (ER) | payer MEDICAID, SELFPAY ==
[2024-05-05 19:41] VITALS: BP 156/91; PULSE 112; RESP 16; TEMP 36.9; O2SAT 100; BMI 27.8
== END 2024-05-05 22:50 | disposition left against medical advice (07) ==
LOC: ED 22:55
DX: Z53.21 Procedure and treatment not carried out due to patient leaving prior to being seen by health care provider (principal)

== ENCOUNTER → 2025-05-11 | Outpatient (CLI) | payer BC, SELFPAY ==
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
[2025-05-11 18:29] LABS: Hepatitis B Surface Antigen Nonreactive (Nonreactive); Hepatitis C Antibody REAC (Nonreactive)
[2025-05-18 14:08] LABS: GGTP 28 IU/L (0-65); HCV Quant. RNA PCR 7240000 IU/mL (.)
== END | disposition home or self-care (01) ==
PROVIDERS: PCP Family Medicine; Referring Provider Family Medicine; Visit Provider Family Medicine
DX: M54.6 Pain in thoracic spine (principal); R76.89 Other specified abnormal immunological findings in serum
CPT/HCPCS: 36415; 72070; 82977; 86704; 86706; 86803; 87340; 87522; 87902